=== PATIENT | female | born 1950 | race Caucasian/White ===

== ENCOUNTER → 2017-03-01 | Outpatient (CLI) | payer BC ==
[~2017-03-01] MED LIST: CLR10 PO; LISI-461 PO; SYN50 PO
[2017-03-01 14:26] LABS: BLOOD UREA NITROGEN 17 mg/dl (7-18); BUN/CREATININE RATIO 16.9 (10-20); CALCIUM 9.7 mg/dl (8.5-10.1); CARBON DIOXIDE 23 mmol/L (21-32); CHLORIDE 108 mmol/L (98-107); GLUCOSE 82 mg/dl (70-99); POTASSIUM 4.2 mmol/L (3.5-5.1); SODIUM 139 mmol/L (136-145)
[2017-03-01 14:36] LABS: CHOLESTEROL 174 mg/dl (0-200); CHOLESTEROL/HDL RATIO 2.8; HDL CHOLESTEROL 62 mg/dl; LDL CHOLESTEROL CALCULATED 94 mg/dl; TRIGLYCERIDES 89 mg/dl (0-150); VERY LOW DENSITY LIPOPROT CALC 18 mg/dl
== END | disposition home or self-care (01) ==
LOC: C.LABBC 10:23
PROVIDERS: ATTEND Internal Medicine Geriatric Medicine
DX: Z00.00 Encounter for general adult medical examination without abnormal findings (principal); E03.9 Hypothyroidism, unspecified; I10 Essential (primary) hypertension; M85.80 Other specified disorders of bone density and structure, unspecified site

== ENCOUNTER → 2017-04-03 | Outpatient (CLI) | payer BC ==
--- NOTE | 2017-04-03 16:07 | MAMMOGRAPHY REPORT ---
BILATERAL DIGITAL SCREENING MAMMOGRAM WITH CAD: 04/03/2017 CLINICAL HISTORY: Routine screening. Patient has no complaints. TECHNIQUE: Bilateral CC and MLO views were obtained. Current study was also evaluated with a Compute r Aided Detection (CAD) system. COMPARISON: Comparison is made to exams dated: 03/31/2016 mammogram, 12/17/2013 mammogram, 12/07/2012 ma mmogram, 12/07/2011 mammogram - [facility], 11/17/2006, and 11/21/2007. BREAST COMPOSITION: The tissue of both breasts is heterogeneously dense, which may obscure small mas ses. FINDINGS: A linear scar marker overlies the upper outer quadrant of the right breast, and 3:00 left b reast. There is a cluster of microcalcifications in the lower inner middle one third of the left breast, for which additional spot magnification views are recommended. A 3 mm nodular asymmetry with associated calcification in the approximate 2:00 to 3:00 posterior right breast, warranting additional spot mag nification views and possible ultrasound. No other suspicious mass, architectural distortion or cluster of microcalcifications is seen bilatera lly. IMPRESSION: ACR BI-RADS CATEGORY 0: INCOMPLETE EVALUATION: NEED ADDITIONAL IMAGING EVALUATION The cluster of microcalcifications in the lower inner middle one third of the left breast, and 3 mm n odular asymmetry with associated calcification in the approximate 2:00 to 3:00 posterior right breast need additional imaging evaluation. The patient will be called to schedule an appointment. Approximately 10% of breast cancers are not detected with mammography. A negative mammographic report should not delay biopsy if a clinically suggestive mass is present. Camilla Carlson M.D. ay/:04/03/2017 12:50:53 Air Conditioning Equipment Mechanic: Gaye SANON)(Bernice), [facility] letter sent: Addl Imaging 0 BI-RADS Code: ACR BI-RADS Category 0: Incomplete Evaluation: Need Additional Imaging Evaluation
== END | disposition home or self-care (01) ==
LOC: C.MAMM 10:37
PROVIDERS: ATTEND Internal Medicine Geriatric Medicine
DX: Z12.31 Encounter for screening mammogram for malignant neoplasm of breast (principal); R92.0 Mammographic microcalcification found on diagnostic imaging of breast; N64.89 Other specified disorders of breast

== ENCOUNTER → 2017-04-05 | Outpatient (CLI) | payer BC ==
--- NOTE | 2017-04-05 15:19 | MAMMOGRAPHY REPORT ---
BILATERAL DIGITAL DIAGNOSTIC MAMMOGRAM: 04/05/2017 CLINICAL HISTORY: Callback from screening mammogram for bilateral calcifications. TECHNIQUE: Spot magnification bilateral cc and ML views were obtained. COMPARISON: Comparison is made to exams dated: 04/03/2017 mammogram, 03/31/2016 mammogram, 12/18/2014 nissa mogram, 12/17/2013 mammogram, 12/07/2012 mammogram, and 12/07/2011 mammogram - [facility]. BREAST COMPOSITION: The tissue of both breasts is heterogeneously dense, which may obscure small mas ses. FINDINGS: Spot magnification views of the left breast demonstrate a small 6 mm cluster of coarse hete rogeneous calcifications in the left inferior breast at approximately 6:00. The calcifications are n ot significantly changed dating back to at least the November 2014 exam on spot magnification views, whe n accounting for differences in mammographic technique. 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 Spot magnification views of the right breast demonstrate a small 3 mm circumscribed benign-appearing mass in the right upper inner quadrant posteriorly with an associated coarse calcification. The mass has been stable dating back to at least 2010 and the coarse calcification has been stable since 2015 . Given the stability, the mass is considered benign and likely also represents a degenerating fibro adenoma. IMPRESSION: ACR BI-RADS CATEGORY 2: BENIGN Grouped calcifications in the left 6:00 breast are stable dating back to the November 2014 exam, and con sidered benign given long-term stability. 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 There is no mammographic evidence of jeane gnancy. A 1 year screening mammogram is recommended. The patient has been verbally notified of the results. Approximately 10% of breast cancers are not detected with mammography. A negative mammographic report should not delay biopsy if a clinically suggestive mass is present. Dorota Askew M.D. /:04/05/2017 13:12:42 Bleach Liquor Maker: Angie BLANC(R)(M), [facility] letter sent: Normal 1/2 BI-RADS Code: ACR BI-RADS Category 2: Benign
== END | disposition home or self-care (01) ==
LOC: C.MAMM 12:32
PROVIDERS: ATTEND Internal Medicine Geriatric Medicine
DX: R92.1 Mammographic calcification found on diagnostic imaging of breast (principal); N63 Unspecified lump in breast

== ENCOUNTER → 2017-05-02 | Outpatient (CLI) | payer BC | END | disposition home or self-care (01) | LOC: C.LABBC 10:28 | PROVIDERS: ATTEND Internal Medicine Geriatric Medicine | DX: M85.89 Other specified disorders of bone density and structure, multiple sites (principal); E03.9 Hypothyroidism, unspecified ==

== ENCOUNTER → 2017-06-08 | Outpatient (CLI) | payer BC ==
[2017-06-08 12:19] LABS: URINE APPEARANCE CLEAR (CLEAR); URINE BILIRUBIN NEG (NEG); URINE COLOR YELLOW; URINE EPITHELIAL CELL AUTO 0-5 /lpf (0-5); URINE NITRITE NEG (NEG); URINE PH 6.5 (4.5-7.5); URINE SPECIFIC GRAVITY 1.015 (1.000-1.030); UROBILINOGEN NEG (NEG)
[2017-06-08 12:24] LABS: MANUAL MICROSCOPIC REQUIRED? NO; REVIEW REQ? NO
== END | disposition home or self-care (01) ==
LOC: C.LABPBG 11:03
PROVIDERS: ATTEND Internal Medicine Geriatric Medicine
DX: R39.9 Unspecified symptoms and signs involving the genitourinary system (principal)

== ENCOUNTER → 2017-08-24 | Outpatient (CLI) | payer BC, OTHER ==
[2017-08-24 12:27] LABS: BLOOD UREA NITROGEN 18 mg/dl (7-18); BUN/CREATININE RATIO 17.5 (10-20); CALCIUM 9.4 mg/dl (8.5-10.1); CARBON DIOXIDE 25 mmol/L (21-32); CHLORIDE 103 mmol/L (98-107); CREATININE 1.04 mg/dl (0.60-1.20); GLUCOSE 85 mg/dl (70-99); POTASSIUM 4.2 mmol/L (3.5-5.1); SODIUM 135 mmol/L (136-145)
[2017-08-24 12:30] LABS: ESTIMATED AVERAGE GLUCOSE 120 mg/dl; HA1C FLAG Normal (Normal)
== END | disposition home or self-care (01) ==
LOC: C.LABPBG 10:22
PROVIDERS: ATTEND Physician Assistant Medical
DX: E03.9 Hypothyroidism, unspecified (principal); R73.09 Other abnormal glucose

== ENCOUNTER → 2017-10-11 | Outpatient (CLI) | payer BC | END | disposition home or self-care (01) | LOC: C.LABPBG 09:49 | PROVIDERS: ATTEND Internal Medicine Geriatric Medicine | DX: E03.9 Hypothyroidism, unspecified (principal) ==

== ENCOUNTER → 2018-04-04 | Outpatient (CLI) | payer BC ==
--- NOTE | 2018-04-04 13:39 | MAMMOGRAPHY REPORT ---
BILATERAL DIGITAL SCREENING MAMMOGRAM TOMOSYNTHESIS WITH CAD: 04/04/2018 CLINICAL HISTORY: Routine screening. Patient has no complaints. Interval 31 pound weight loss since p rior mammogram. TECHNIQUE: The study was acquired using full field digital technology and interpreted from soft copy. Breast tomosynthesis in addition to standard 2D mammography was performed. Current study was also ev aluated with a Computer Aided Detection (CAD) system. COMPARISON: Comparison is made to exams dated: 04/05/2017 mammogram, 04/03/2017 mammogram, 03/31/2016 mamm ogram, 12/18/2014 mammogram, 06/24/2014 mammogram, and 12/20/2013 mammogram - [facility] ter. BREAST COMPOSITION: The tissue of both breasts is heterogeneously dense, which may obscure small mass es. FINDINGS: Small oval subcentimeter focal asymmetry with single associated coarse calcification in the approximate 3:00 posterior right breast and loose grouping of calcifications and associated nodulari ty in the 6:00 left breast appears stable compared to last years exam. However, there is a 16 mm irr egular focal asymmetry with associated calcification in the approximate 2:00 to 3:00 middle one third of the right breast for which additional spot magnification and spot compression tomosynthesis views with possible ultrasound are recommended for further characterization. No other new suspicious mass, architectural distortion or cluster of microcalcifications is seen. IMPRESSION: ACR BI-RADS CATEGORY 0: INCOMPLETE EVALUATION: NEED ADDITIONAL IMAGING EVALUATION The 16mm irregular focal asymmetry and associated calcification in the 2:00 to 3:00 right breast need s additional evaluation. The patient will be called to schedule an appointment. Some breast cancers are not detected with mammography. A negative mammographic report should not lila y biopsy if a clinically suggestive mass is present. Camilla Carlson M.D. ay/:04/04/2018 12:10:55 Senior Fire Protection Engineer: RT Emanuel(Rosey)(M), [facility] letter sent: Addl Imaging 0 BI-RADS Code: ACR BI-RADS Category 0: Incomplete Evaluation: Need Additional Imaging Evaluation
== END | disposition home or self-care (01) ==
LOC: C.MAMM 10:23
PROVIDERS: ATTEND Internal Medicine Geriatric Medicine
DX: Z12.31 Encounter for screening mammogram for malignant neoplasm of breast (principal); R92.1 Mammographic calcification found on diagnostic imaging of breast

== ENCOUNTER → 2018-04-12 | Outpatient (CLI) | payer BC ==
--- NOTE | 2018-04-12 15:43 | MAMMOGRAPHY REPORT ---
UNILATERAL RIGHT DIGITAL DIAGNOSTIC MAMMOGRAM TOMOSYNTHESIS AND TARGETED RIGHT ULTRASOUND: 04/12/2018 CLINICAL HISTORY: Callback from screening mammogram for right breast asymmetry with associated calcif ications. The patient reports a 30 pound weight loss. TECHNIQUE: The study was acquired using full field digital technology and interpreted from soft copy. Breast tomosynthesis in addition to standard 2D mammography was performed. Right cc and MLO spot co mpression tomosynthesis views and spot magnification right cc and ML views were obtained. COMPARISON: Comparison is made to exams dated: 04/04/2018 mammogram, 04/05/2017 mammogram, 04/03/2017 mamm ogram, 03/31/2016 mammogram, 12/18/2014 mammogram, and 06/24/2014 mammogram - [facility]. BREAST COMPOSITION: The tissue of right breast is heterogeneously dense, which may obscure small mass es. FINDINGS: Spot compression views demonstrate an ill-defined low-density asymmetry within the right medial breas t at approximately 2 to 3:00 measuring approximately 17 mm. The asymmetry appears stable compared to multiple prior exams on the 2D views including the cc view from the 2011 exam. Spot magnification v iews of the region demonstrate a coarse heterogeneous calcification and a few other fainter calcifica tions in the region of the asymmetry, which do not appear significantly changed compared to spot magn ification views from the 04/05/2017 exam. The coarse calcification has been present on multiple prior exams including the 2010 exam and has coarsened compared to the older prior exams. Targeted ultrasound was performed of the right upper inner quadrant in the region of the mammographic asymmetry. In the right 1:00 breast, approximately 3 cm from the nipple, there is a focal isoechoic region which measures 1.2 x 1.2 cm. This may correspond with the mammographic asymmetry. 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 IMPRESSION: ACR-BI-RADS CATEGORY 3: PROBABLY BENIGN, ULTRASOUND ACR-BI-RADS CATEGORY 3: PROBABLY SHAUN GN The right medial breast asymmetry is stable in size and appearance dating back to at least the 2011 e xam mammographically. A few calcifications are seen in association with the asymmetry which are not significantly changed compared to the 2017 exam. 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 Recommend follow-up diagnostic tomosyn thesis mammograms and possible ultrasound of the right breast in 6 months to reevaluate. The patient has been verbally notified of the results. Some breast cancers are not detected with mammography. A negative mammographic report should not lila y biopsy if a clinically suggestive mass is present. Dorota Askew M.D. ah/:04/12/2018 12:07:42 Boilermaker Pipe Fitter: RT Emanuel(Rosey)(M), [facility]; Dorota Askew MD, [facility] letter sent: Follow Up Recommended 3 OVERALL STUDY BIRADS: 3 Probably benign
== END | disposition home or self-care (01) ==
LOC: C.MAMM 10:18
PROVIDERS: ATTEND Internal Medicine Geriatric Medicine
DX: N64.89 Other specified disorders of breast (principal); R92.1 Mammographic calcification found on diagnostic imaging of breast